=== PATIENT | female | born 1935 | race Caucasian/White ===

== ENCOUNTER 2018-04-22 04:42 | Emergency (ER) | payer OTHER ==
[2018-04-22 05:22] LABS: ADD MAN DIFF? NO
[2018-04-22] MEDS: ONDANSETRON 4 MG INJ IV (05:22)
[2018-04-22 05:23] LABS: BASOPHIL # 0.1 10^3/ul (0.0-0.1); BASOPHILS % 0.7 % (0.0-2.0); EOSINOPHILS # 0.4 10^3/ul (0.0-0.5); EOSINOPHILS % 4.6 % (0.0-7.0); HEMATOCRIT 33.6 % (37.0-47.0); HEMOGLOBIN 10.5 g/dl (12.0-16.0); LYMPHOCYTES # 3.6 10^3/ul (0.8-2.9); LYMPHOCYTES % 40.2 % (15.0-51.0); MEAN CORPUSCULAR HEMOGLOBIN 27.8 pg (29.0-33.0); MEAN CORPUSCULAR HGB CONC 31.3 g/dl (32.0-37.0); MEAN CORPUSCULAR VOLUME 88.9 fl (82.0-101.0); MEAN PLATELET VOLUME 9.4 fl (7.4-10.4); MONOCYTE # 0.6 10^3/ul (0.3-0.9); MONOCYTES % 6.6 % (0.0-11.0); NEUTROPHIL # 4.3 10^3/ul (1.6-7.5); NEUTROPHILS % 47.6 % (39.0-77.0); PLATELET COUNT 256 10^3/UL (140-415); RED BLOOD COUNT 3.78 10^6/ul (4.20-5.40); RED CELL DISTRIBUTION WIDTH 12.9 % (11.5-14.5)
[2018-04-22] MEDS: SOD CHLORIDE 0.9% 500 ML IV (05:23)
[2018-04-22] MEDS: morphine 4 MG/ML VIAL IV ×2 (05:23→07:01)
[2018-04-22 05:48] LABS: ALANINE AMINOTRANSFERASE 19 IU/L (13-69); ALBUMIN 4.5 g/dl (3.3-4.9); ALBUMIN/GLOBULIN RATIO 1.45; ALKALINE PHOSPHATASE 52 IU/L (42-121); ANION GAP 16 (8-16); ASPARTATE AMINO TRANSFERASE 16 IU/L (15-46); BLOOD UREA NITROGEN 20 mg/dl (7-20); CALCIUM 9.1 mg/dl (8.4-10.2); CARBON DIOXIDE 25 mmol/L (21-31); CHLORIDE 106 mmol/L (97-110); CREATININE 0.87 mg/dl (0.44-1.00); GLUCOSE 131 mg/dl (70-220); LIPASE 61 U/L (23-300); POTASSIUM 4.7 mmol/L (3.5-5.1); SODIUM 142 mmol/L (135-144); TOTAL PROTEIN 7.6 g/dl (6.1-8.1)
[2018-04-22 07:07] LABS: ADD UMIC YES; UR ASCORBIC ACID NEGATIVE (NEGATIVE); UR BILIRUBIN (Dip) NEGATIVE (NEGATIVE); UR BLOOD (Dip) NEGATIVE (NEGATIVE); UR CLARITY CLEAR (CLEAR); UR COLOR STRAW (YELLOW); UR GLUCOSE (Dip) NEGATIVE (NEGATIVE); UR KETONES (Dip) NEGATIVE (NEGATIVE); UR LEUKOCYTE ESTERASE (Dip) TRACE Leu/ul (NEGATIVE); UR NITRITE (Dip) NEGATIVE (NEGATIVE); UR RBC 0 /HPF (0-5); UR SPECIFIC GRAVITY (Dip) 1.006 (1.003-1.030); UR TOTAL PROTEIN (Dip) NEGATIVE (NEGATIVE); UR UROBILINOGEN (Dip) NEGATIVE (NEGATIVE); UR WBC 2 /HPF (0-5)
[2018-04-22] MEDS: LABETALOL HCL 20MG INJ IV (08:01)
[2018-04-22] MEDS: HYDROmorphONE 2 MG/ML SYG IV (08:13)
[2018-04-22] MEDS: DIPHENHYDRAMINE 50 MG INJ IV (09:00)
== END 2018-04-22 10:54 | disposition home or self-care (01) ==
LOC: E/R 04:42
DX: M54.5 Low back pain (principal); I10 Essential (primary) hypertension; E11.9 Type 2 diabetes mellitus without complications; G20 Parkinson's disease; Z79.82 Long term (current) use of aspirin; Z79.84 Long term (current) use of oral hypoglycemic drugs
CPT/HCPCS: 36415; 74176; 80053; 81001; 83690; 85025; 96374; 96375; 96376; 99285-25